=== PATIENT | male | born 1960 | race Caucasian/White ===

== ENCOUNTER 2022-06-04 06:39 | Emergency (ER) | payer OTHER, SELFPAY ==
[2022-06-04 06:58] VITALS: BP 169/111; PULSE 73; RESP 16; TEMP 37.2; O2SAT 97
--- NOTE | 2022-06-04 07:18 | ED.GENADULT ---
HPI - General Adult General Chief complaint: Jaw Injury/Pain Stated complaint: Swollen face after root canal Time Seen by Provider: 06/04/22 07:18 Source: patient Mode of arrival: ambulatory Limitations: no limitations History of Present Illness HPI narrative: 62-year-old male coming in today concerned about swelling of his mouth. Patient is postoperative day number 4 status post a root canal on of the lower right jaw. He states that in the last 24 hours the swelling has gotten markedly worse. He denies any systemic symptoms such as fevers or chills. No difficulty breathing or swallowing. He denies any redness to the face or neck. He denies any pain in the neck. Related Data Previous Rx's Medication Instructions Recorded amoxicillin 875 mg-potassium 1 tab PO BID 7 days #14 tabs 06/04/22 clavulanate 125 mg tablet Allergies Allergy/AdvReac Type Severity Reaction Status Date / Time No Known Drug Allergies Allergy Verified 06/04/22 07:06 Review of Systems Status of ROS: Reports: 6 or more systems reviewed and unremarkable except as noted in History and below Exam Narrative: Exam Narrative: Well-nourished well-developed patient in no acute distress. Alert and oriented. Answers questions appropriately. Mood and affect are appropriate. Patient speaks in full sentences without needing to catch his breath. HEENT: Atraumatic. Pupils are equally round reactive to light. Extraocular muscles are intact. Conjunctivae are moist without any icterus noted. Moist mucous membranes. Posterior pharynx is normal. Neck is soft without any lymphadenopathy or thyromegaly. No masses are appreciated. Skin around the face and neck appear normal without any erythema or ecchymosis. The right lower jaw is markedly swollen. Inspection of the inside of the mouth does not reveal any gingival swelling or areas of fluctuance. The bulk of the swelling appears to be right in the buccal area with swelling extending into the lower lip. I do not see or feel any obvious areas of fluctuance consistent with abscess formation. Cardiovascular: Heart is regular rate and rhythm S1 and S2 are present. Lungs:Patient takes deep breaths without any discomfort. Skin: Well perfused without any obvious rashes. Const: Vital Signs, click to edit/add: Vital Signs - 24 hr 06/04/22 06:58 Temperature 99.0 F Pulse Rate [Left P ulse Oximeter] 73 Respiratory Rate 16 Blood Pressure [Ri ght Upper Arm] 169/111 H Pulse Oximetry 97 Oxygen Delivery Me thod Room Air Course Vital Signs Vital signs: Initial Vital Signs Temperature 99.0 F 06/04/22 06:58 Temperature Source Temporal Artery Scan 06/04/22 06:58 Pulse Rate 73 06/04/22 06:58 Pulse Rhythm 06/04/22 06:58 Respiratory Rate 16 06/04/22 06:58 Blood Pressure 169/111 H 06/04/22 06:58 Blood Pressure Mean 130 06/04/22 06:58 Blood Pressure Position Semi-Fowlers 06/04/22 06:58 Pulse Oximetry 97 06/04/22 06:58 Oxygen Delivery Method 06/04/22 06:58 Vital Signs Temperature 99.0 F 06/04/22 06:58 Pulse Rate 73 06/04/22 06:58 Respiratory Rate 16 06/04/22 06:58 Blood Pressure 169/111 H 06/04/22 06:58 Pulse Oximetry 97 06/04/22 06:58 Oxygen Delivery Method 06/04/22 06:58 Temperature 99.0 F 06/04/22 06:58 Pulse Rate 73 06/04/22 06:58 Respiratory Rate 16 06/04/22 06:58 Blood Pressure 169/111 H 06/04/22 06:58 Pulse Oximetry 97 06/04/22 06:58 Oxygen Delivery Method 06/04/22 06:58 Medical Decision Making MDM Narrative Medical decision making narrative: Postoperative facial swelling. At this time again, no evidence of obvious abscess formation. Therefore we will place the patient and antibiotics and not attempt an I and D. recommend he follow-up with his surgeon in the next 24-48 hours. Patient was agreeable with everything we discussed and had no other questions. We discussed reasons to return to the ER. Discharge Plan Discharge Clinical Impression: Facial swelling Patient Disposition: Home, Self-Care Condition: Stable Additional Instructions: Start antibiotics today. If you cannot get in to see your surgeon in the next 24-48 hours and your face continues to swell despite antibiotic treatment, return to the ER. Prescriptions: New amoxicillin-pot clavulanate 875-125 mg tablet 1 tab PO BID 7 Days Qty: 14 0RF Stand Alone Forms: [employer] Info Instructions
== END 2022-06-04 07:37 | disposition home or self-care (01) ==
PROVIDERS: Emergency Provider Family Medicine
DX: M25.48 Effusion, other site (principal); R68.84 Jaw pain
CPT/HCPCS: 99282; 99283